=== PATIENT | male | born 2000 | race Caucasian/White ===

== ENCOUNTER 2018-12-22 18:57 | Emergency (ER) | payer BC, OTHER ==
[~2018-12-22] VITALS: Ht 180.3 cm; Wt 70.3 kg
--- NOTE | 2018-12-22 19:00 | NUR ---
WOUND CLEANED WITH STERILE WATER/HIBICLENS SOAP. WET DRESSING PLACED OVER WOUND.
[2018-12-22] MEDS ORDERED: LIDOCAINE 1% INJ 20 ML 20 ML VIAL INJ ONE (19:15)
[2018-12-22 19:33] VITALS: BP 131/91
[2018-12-22] MEDS ORDERED: SULF1TAB35 PO (21:18)
--- NOTE | 2018-12-22 21:18 | ED Upper Extremity ---
General Chief Complaint: Laceration Stated Complaint: L HAND LACERATION Nursing Triage Note: LACERATION LEFT DORSAL HAND. Nursing Sepsis Screen: No Definite Risk Source: patient Exam Limitations: no limitations History of Present Illness Date Seen by Provider: Dec 22, 2018 Time Seen by Provider: 19:15 Initial Comments 18-year-old male who presents to the emergency room with complaints of a laceration to the dorsal surface of his left hand. There is a 6 cm linear laceration to the dorsal surface of the left hand. He reports that he was shooting his bow and arrow when the arrow broke in half hitting him in the top of the hand. The arrow was fiberglass and there is a lot of particle's of fiberglass in the wound. He has full movement and function of the hand. Onset: just prior to arrival Pain/Injury Location: left hand Modifying Factors: Worse With Movement Allergies and Home Medications Allergies Coded Allergies: No Known Drug Allergies (Unverified , 12/22/18) Home Medications Sulfamethoxazole/Trimethoprim 1 Each Tablet, 1 EACH PO BID Prescribed by: FERN GUNDERSON on 12/22/182117 Patient Home Medication List Home Medication List Reviewed: Yes Review of Systems Constitutional: see HPI; No chills, No fever Skin: see HPI, other (laceration to the left hand) All Other Systems Reviewed Negative Unless Noted: Yes Past Thpgryu-Azgwvd-Jrdblu Hx Past Med/Social Hx: Reviewed Nursing Past Med/Soc Hx Patient Social History Alcohol Use: Occasionally Uses Recreational Drug Use: Yes Drug of Choice: CANNIBUS Smoking Status: Never a Smoker 2nd Hand Smoke Exposure: Yes Recent Foreign Travel: No Contact w/Someone Who Travel: No Recent Infectious Disease Expo: No Recent Hopitalizations: No Immunizations Up To Date Tetanus Booster (TDap): Less than 5yrs PED Vaccines UTD: Yes Seasonal Allergies Seasonal Allergies: No Past Medical History Surgeries: No Respiratory: No Cardiac: No Neurological: No Genitourinary: No Gastrointestinal: No Musculoskeletal: No Endocrine: No HEENT: No Cancer: No Psychosocial: No Integumentary: No Blood Disorders: No Adverse Reaction/Blood Tranf: No Family Medical History Reviewed Nursing Family Hx Physical Exam Vital Signs Vital Signs - First Documented 12/22/18 19:00 Temp 98.2 Pulse 132 Resp 18 B/P (MAP) 165/109 (127) Pulse Ox 100 O2 Delivery Room Air Capillary Refill : Less Than 3 Seconds Height, Weight, BMI Height: 5'11.00" Weight: 155lbs. oz. [id number]; BMI Method:Stated General Appearance: WD/WN, no apparent distress Cardiovascular: normal peripheral pulses, regular rate, rhythm, no edema, no gallop, no JVD, no murmur Respiratory: chest non-tender, lungs clear, normal breath sounds, no respiratory distress, no accessory muscle use Hand: Left, laceration (6 cm laceration to the dorsal surface of the left hand. ) Neurologic/Psychiatric: alert, normal mood/affect, oriented x 3 Skin: normal color, warm/dry Procedures/Interventions Wound Location: Upper Extremities Other Wound Location Left hand Wound Length (cm): 6 Wound's Depth, Shape: superficial, linear Wound Explored: foreign body removed (several particles of fiberglass) Irrigated w/ Saline (ccs): 2000 Betadine Prep?: Yes Anesthesia: 1% Lidocaine Volume Anesthetic (ccs): 5 Suture: Prolene Suture Size: 4-0 Number of Sutures: 6 Sterile Dressing Applied?: Yes Progress The wound was anesthetized with approximately 5 ML's of lidocaine without epinephrine. The wound was thoroughly irrigated and debrided with 2000 mL of saline. The wound was closed loosely with 6 simple interrupted sutures of 4-0 Prolene. Sterile dressing of Telfa, gauze, triple antibiotic ointment and Coban was applied. Patient tolerated procedure well. Progress/Results/Core Measures Results/Orders My Orders Orders - FERN GUNDERSON Lidocaine 1% Inj 20 Ml (Xylocaine 1% Inj (12/22/18 19:15) Sulfamethoxazole/Trimet Ds Tab (Bactrim (12/22/18 21:30) Medications Given in ED Current Medications Medications Dose Ordered Sig/Madelyn Route Start Time Stop Time Status Last Admin Dose Admin Lidocaine HCl 20 ml ONCE ONCE INJ 12/22/18 19:15 12/22/18 19:16 DC 12/22/18 19:20 20 ML Trimethoprim/ Sulfamethoxazole 1 ea ONCE ONCE PO 12/22/18 21:30 12/22/18 21:30 DC 12/22/18 21:28 1 EA Vital Signs/I&O 12/22/18 12/22/18 12/22/18 19:00 19:33 21:29 Temp 98.2 98.0 Pulse 132 83 90 Resp 18 18 16 B/P (MAP) 165/109 (127) 131/91 (104) 143/92 (109) Pulse Ox 100 98 99 O2 Delivery Room Air Room Air Room Air Blood Pressure Mean: 104 Progress Progress Note : Time: 20:30 Progress Note I have seen and evaluated the patient. I have discussed the case with Dr. Willis and he recommends closing the wound loosely to allow any remaining particles to work there way out and having the patient follow up with him in the next few days for reevaluation. The patient agrees with plan of care, plans for discharge, return precautions were given. Departure Impression Primary Impression: Laceration Disposition: HOME, SELF-CARE Condition: Stable/Unchanged Departure-Patient Inst. Decision time for Depature: 21:16 Referrals: NO,LOCAL PHYSICIAN (PCP) Primary Care Physician LUIS WILLIS DO Patient Instructions: Laceration Repair With Stitches (DC) Add. Discharge Instructions: Call Dr. Willis's office tomorrow morning to schedule a follow-up appointment to be seen within 1 week. He will determine when the sutures need to come out. Return back to the emergency room for worsening symptoms, signs of infection such as increased redness, swelling, drainage, pain. Take medication as directed. Ibuprofen and Tylenol as directed by the bottle for pain relief. Changes dressing daily. All discharge instructions reviewed with patient and/or family. Voiced understanding. Scripts Sulfamethoxazole/Trimethoprim (Bactrim Ds Tablet) 1 Each Tablet 1 EACH PO BID for 7 Days, #14 TAB Prov: FERN GUNDERSON 12/22/18 Copy Copies To 1: LUIS WILLIS TRAVIS Dec 22, 2018 21:18
[2018-12-22 21:29] VITALS: BP 143/92
[2018-12-22] MEDS ORDERED: TRIM/SULFAMETH 160/800 (SEPTRA DS) TAB PO ONE (21:30)
== END 2018-12-22 21:29 | disposition home or self-care (01) ==
LOC: ER 18:59
DX: S61.422A Laceration with foreign body of left hand, initial encounter (principal); F12.10 Cannabis abuse, uncomplicated; Z77.22 Contact with and (suspected) exposure to environmental tobacco smoke (acute) (chronic); W26.8XXA Contact with other sharp object(s), not elsewhere classified, initial encounter
CPT/HCPCS: 12042